=== PATIENT | female | born 1955 | race African-American/Black ===

== ENCOUNTER 2018-06-17 09:17 | Inpatient (IN) | payer MEDICAID ==
[~2018-06-17] VITALS: Ht 162.6 cm; Wt 61.7 kg
[2018-06-17] MEDS ORDERED: MORPHINE SULFATE 4 MG/ML CPJ (NOT FOR IM USE) IV STA (09:35)
[2018-06-17] MEDS ORDERED: ONDANSETRON HCL 4MG/2ML INJ IV STA (09:35)
[2018-06-17] MEDS ORDERED: SODIUM CHLORIDE 0.9% 1,000 ML IV ONE (09:35)
[2018-06-17] MEDS ORDERED: ASPIRIN 81MG TABLET PO ONE (09:45)
[2018-06-17 10:11] LABS: HEMATOCRIT. 39.4 % (36.0-48.0); HEMOGLOBIN. 13.2 g/dL (12.0-16.0); MEAN CORPUSCULAR HEMOGLOBIN 29.7 pg (28.0-32.0); MEAN CORPUSCULAR VOLUME 88.8 fL (81.0-99.0); MEAN PLATELET VOLUME 8.8 fl (7.4-10.4); PLATELET 206 x1000/uL (130-400); RED BLOOD CELL COUNT 4.44 mill/uL (4.2-5.4); RED CELL DISTRIBUTION WIDTH 12.7 % (11.6-14.6)
[2018-06-17 10:15] LABS: CHLORIDE 112 mEq/L (98-107)
[2018-06-17 10:19] LABS: PARTIAL THROMBOPLASTIN TIME 24.7 sec (23.4-31.0); PROTHROMBIN TIME 10.3 sec (9.1-11.1)
[2018-06-17 10:22] LABS: ETHANOL BLOOD < 10 mg/dL
[2018-06-17 11:03] LABS: PLATELET ESTIMATE NORMAL
[2018-06-17 15:10] LABS: *AMPHETAMINES SCREEN URINE NEGATIVE (NEGATIVE); *BARBITURATES SCREEN URINE NEGATIVE (NEGATIVE); *BENZODIAZEPINES SCREEN URINE NEGATIVE (NEGATIVE); *COCAINE SCREEN URINE PRESUMTIVE POSITIVE (NEGATIVE); METHADONE URINE SCREEN NEGATIVE (NEGATIVE); OPIATES URINE SCREEN PRESUMTIVE POSITIVE (NEGATIVE)
[2018-06-17 15:11] LABS: CANNABINOID URINE SCREEN NEGATIVE (NEGATIVE); PHENCYCLIDINE URINE SCREEN NEGATIVE (NEGATIVE)
[2018-06-17 16:00] VITALS: BP 116/73
[2018-06-17 16:08] VITALS: BP 139/99
[2018-06-17] MEDS ORDERED: CLONIDINE 0.1MG TABLET PO PRN (16:15)
[2018-06-17] MEDS ORDERED: ACETAMINOPHEN 325MG TABLET PO PRN (16:15)
[2018-06-17] MEDS ORDERED: ZOLPIDEM TARTRATE 5MG TABLET PO PRN (16:15)
[2018-06-17] MEDS ORDERED: ONDANSETRON HCL 4MG/2ML INJ IV PRN (16:15)
[2018-06-17] MEDS ORDERED: GUAIFENESIN 200MG/10ML SUGAR FREE UDC PO PRN (16:15)
[2018-06-17] MEDS ORDERED: MAGNESIUM/ALUMINUM HYDROXIDE/SIMETHICONE 30ML UDC PO PRN (16:15)
[2018-06-17] MEDS ORDERED: KETOROLAC 15MG/ML VIAL IV PRN (16:15)
[2018-06-17] MEDS ORDERED: NITROGLYCERIN 0.4MG TABLET SL SL PRN (16:15)
[2018-06-17] MEDS ORDERED: IPRATROPIUM/ALBUTEROL 0.5-3(2.5)MG/3ML NEB INH PRN (16:15)
[2018-06-17] MEDS ORDERED: DOCUSATE SODIUM 100MG CAPSULE PO PRN (16:15)
[2018-06-17] MEDS ORDERED: ENOXAPARIN 40MG/0.4ML SYR SUBCUT SCH (17:00)
[2018-06-17] MEDS: DILTIAZEM HCL 60MG TABLET PO SCH (17:25)
[2018-06-17 20:00] VITALS: BP 113/57
[2018-06-17] MEDS: FAMOTIDINE 20MG TABLET PO SCH (21:23)
[2018-06-18 01:20] LABS: CREATINE KINASE 34 IU/L (26-192)
[2018-06-18 01:22] LABS: CREATINE KINASE MB FRACTION < 1.0 ng/mL (0.5-3.6)
[2018-06-18 03:05] VITALS: BP 100/52
[2018-06-18] MEDS: SODIUM CHLORIDE 0.9% 1,000 ML IV SCH ×3 (03:11→05:09)
[2018-06-18] MEDS: DILTIAZEM HCL 60MG TABLET PO SCH ×2 (05:53)
[2018-06-18] MEDS: FAMOTIDINE 20MG TABLET PO SCH (07:55)
[2018-06-18 08:00] VITALS: BP 114/69
[2018-06-18] MEDS ORDERED: ASPIRIN 325MG EC TABLET PO SCH (09:00)
[2018-06-18 09:08] LABS: CHLORIDE 112 mEq/L (98-107)
[2018-06-18 09:17] LABS: CREATINE KINASE 30 IU/L (26-192)
[2018-06-18 09:19] LABS: CREATINE KINASE MB FRACTION < 1.0 ng/mL (0.5-3.6)
== END 2018-06-18 10:00 | disposition home or self-care (01) | DRG 816 ==
LOC: ER 09:17 → 8WST 12:42 → EDBEDREQ 12:44 → ENRESERV 14:35
PROVIDERS: ADMIT Internal Medicine; ATTEND Internal Medicine
DX: T40.5X1A Poisoning by cocaine, accidental (unintentional), initial encounter (principal); E44.1 Mild protein-calorie malnutrition; E83.52 Hypercalcemia; F14.10 Cocaine abuse, uncomplicated; F17.210 Nicotine dependence, cigarettes, uncomplicated; Z90.710 Acquired absence of both cervix and uterus; Z68.23 Body mass index [BMI] 23.0-23.9, adult; Y92.89 Other specified places as the place of occurrence of the external cause; Z71.51 Drug abuse counseling and surveillance of drug abuser; R07.9 Chest pain, unspecified; I73.89 Other specified peripheral vascular diseases
CPT/HCPCS: 36415; 71045; 80048; 80061; 80305; 80320; 82550; 82553; 83036; 83880; 83970; 84484; 93005; 93970; 96361; 96374; 96375; 99285; J1650; J2270; J2405; J7030; J7050; G0480

== ENCOUNTER 2019-08-15 10:05 | Emergency (ER) | payer MEDICAID ==
[~2019-08-15] VITALS: Ht 165.1 cm; Wt 59.0 kg
[2019-08-15 11:31] LABS: CLARITY URINE CLEAR (CLEAR); COLOR URINE YELLOW (YELLOW); KETONES URINE NEGATIVE (NEGATIVE); LEUKOCYTE ESTERASE URINE NEGATIVE (NEGATIVE); NITRITE URINE NEGATIVE (NEGATIVE); OCCULT BLOOD URINE NEGATIVE (NEGATIVE); PROTEIN URINE NEGATIVE (NEGATIVE); SPECIFIC GRAVITY URINE 1.014 (1.005-1.030)
[2019-08-15 12:00] VITALS: BP 112/73
== END 2019-08-15 12:14 | disposition home or self-care (01) ==
LOC: ER 10:05
DX: B34.9 Viral infection, unspecified (principal); R03.0 Elevated blood-pressure reading, without diagnosis of hypertension
CPT/HCPCS: 71045; 81003; 99284